=== PATIENT | female | born 1950 | race Caucasian/White ===

== ENCOUNTER 2021-04-14 16:50 | Inpatient (IN) ==
[2021-04-14] MEDS ORDERED: SODIUM CHLORIDE 0.9% 1,000 ML IV STA ×2 (17:51→19:05)
[2021-04-14 19:01] LABS: Basophils # 0.1 10*3/uL (0.0-0.2); Basophils % 0.2 % (0.0-0.8); Eosinophils % 0.1 % (0.00-10.9); Hematocrit 45.7 VOL% (35.7-47.0); Hemoglobin 14.3 GM/DL (12.0-16.0); Immature Granulocytes % 1.1 %; Immature Granulocytes Absolute 0.26 #; Lymphocytes # 1.8 10*3/uL (1.4-4.0); Lymphocytes % 7.5 % (21.3-54.2); Mean Corpuscular HGB Conc 31.3 GM/DL (32-36); Mean Corpuscular Volume 93.1 FL (87-102); Mean Platelet Volume 9.3 FL (9.6-12.0); Monocytes % 3.2 % (1.7-12.7); NRBC # 0.02 10*3/uL; Neutrophils % 87.9 % (38.7-73.9); Platelet Count 509 T/CUMM (130-400); Red Blood Count 4.91 MC/CUMM (3.8-5.5); Red Cell Distribution Width 14.8 % (9.3-17.3); White Blood Count 24.7 T/CUMM (4-12)
[2021-04-14] MEDS ORDERED: PIPERACILLIN/TAZOBACTAM 3,375 MG in SODIUM CHLORIDE 0.9% 100 ML IV STA (19:05)
[2021-04-14] MEDS ORDERED: PIPERACILLIN/TAZOBACTAM 3,375 MG VIAL IV ONE (19:07)
[2021-04-14] MEDS ORDERED: SODIUM CHLORIDE 0.9% 100 ML IV ONE (19:08)
[2021-04-14 19:16] LABS: Alanine Aminotransferase 123 U/L (13-56); Alkaline Phosphatase 181 U/L (45-117); Aspartate Amino Transferase 216 U/L (0-37); Blood Urea Nitrogen 39 MG/DL (7-18); Calcium 8.7 MG/DL (8.5-10.1); Carbon Dioxide 24 MMOL/L (21-32); Estimated Glom Filtration Rate 36 ML/MIN; Glucose 87 MG/DL (74-106); Osmolality,Calculated 269.7 MOS/KG (273-304); Potassium 4.8 MMOL/L (3.5-5.1); Sodium 131 MMOL/L (136-145); Total Protein 5.4 G/DL (6.4-8.2)
[2021-04-14 19:26] LABS: Thyroid Stimulating Hormone 9.99 uIU/ml (0.358-3.74)
[2021-04-14] MEDS ORDERED: NOREPINEPHRINE 4 MG/4 ML VIAL IV ONE (19:33)
[2021-04-14] MEDS: NOREPINEPHRINE 8 MG in SODIUM CHLORIDE 0.9% 242 ML IV PRN (19:40)
[2021-04-14 20:04] LABS: ABG Oxygen Saturation 91.4 % (95-100); ABG PCO2 54.2 MM HG (35-48); ABG PH 7.255 (7.35-7.45); ABG TCO2 21.6 MMOL/L (23-27); Allen Test Positive
[2021-04-14 20:26] LABS: Lymphocytes 5 % (20-55); Segmented Neutrophils 92 % (50-85); Total Cells Counted 100
[2021-04-14 20:33] LABS: INR 1.1; PT Patient Result 12.6 SECS (10.5-12.0); Partial Thromboplastin Time 29.9 SECS (23.9-33.8)
[2021-04-14] MEDS ORDERED: DIGOXIN 0.5 MG/2 ML AMP ONE ×2 (20:54→20:56)
[2021-04-14] MEDS ORDERED: HYDROmorphone 2 MG/1 ML VIAL IV STA (21:43)
[2021-04-14] MEDS ORDERED: HYDROmorphone 2 MG/1 ML VIAL ONE (21:44)
[2021-04-14] MEDS ORDERED: HYDROmorphone 2 MG/1 ML VIAL IV PRN (21:47)
[2021-04-14] MEDS ORDERED: LORazepam 2 MG/1 ML VIAL IV PRN (21:56)
[2021-04-14] MEDS ORDERED: PROMETHAZINE INJ 12.5 MG in SODIUM CHLORIDE 0.9% 50 ML IV PRN (21:56)
[2021-04-14] MEDS ORDERED: ALBUTEROL 2.5 MG/3 ML NEB RESP TX PRN (21:58)
[2021-04-14] MEDS ORDERED: PANTOPRAZOLE 40 MG VIAL IV SCH (22:00)
[2021-04-14] MEDS ORDERED: ENOXAPARIN 30 MG/0.3 ML SYRINGE SUBCUT SCH (22:00)
[2021-04-14] MEDS ORDERED: LACTATED RINGERS 1,000 ML IV SCH (22:00)
[2021-04-14] MEDS ORDERED: DIGOXIN 0.5 MG/2 ML AMP IV ONE ×2 (22:04→22:45)
[2021-04-14] MEDS: HYDROCORTISONE 100 MG VIAL IV SCH (23:25)
[2021-04-15] MEDS: NOREPINEPHRINE 8 MG in SODIUM CHLORIDE 0.9% 242 ML IV PRN ×2 (00:15→03:25)
[2021-04-15 01:22] LABS: Mean Corpuscular HGB Conc 30.5 GM/DL (32-36)
[2021-04-15 01:42] LABS: Basophils # 0.1 10*3/uL (0.0-0.2); Basophils % 0.4 % (0.0-0.8); Eosinophils # 0.1 10*3/uL (0.0-0.87); Eosinophils % 0.2 % (0.00-10.9); Hematocrit 49.8 VOL% (35.7-47.0); Immature Granulocytes % 1.4 %; Immature Granulocytes Absolute 0.45 #; Lymphocytes # 1.8 10*3/uL (1.4-4.0); Lymphocytes % 5.6 % (21.3-54.2); Mean Corpuscular Volume 94.9 FL (87-102); Mean Platelet Volume 9.5 FL (9.6-12.0); NRBC # 0.02 10*3/uL; Neutrophils % 88.4 % (38.7-73.9); Platelet Count 498 T/CUMM (130-400); Red Blood Count 5.25 MC/CUMM (3.8-5.5); Red Cell Distribution Width 14.6 % (9.3-17.3); White Blood Count 32.3 T/CUMM (4-12)
[2021-04-15 01:43] LABS: Hemoglobin 15.2 GM/DL (12.0-16.0)
[2021-04-15 02:12] LABS: Band Neutrophils 2 % (0-10); Lymphocytes 8 % (20-55); Platelet Estimate Increased; Segmented Neutrophils 85 % (50-85); Total Cells Counted 100
[2021-04-15 02:22] VITALS: BP 108/44
[2021-04-15 03:03] LABS: Calcium 8.4 MG/DL (8.5-10.1); Osmolality,Calculated 272.7 MOS/KG (273-304); Potassium 5.9 MMOL/L (3.5-5.1); Total Protein 5.8 G/DL (6.4-8.2)
[2021-04-15] MEDS: HYDROCORTISONE 100 MG VIAL IV SCH (04:03)
== END 2021-04-15 06:08 | disposition expired | DRG 948 ==
LOC: EDBD → EDUNIT# → N.ED 16:50 → N.EDINP 20:38 → N.CC 22:08
PROVIDERS: ADMIT Internal Medicine; ATTEND Internal Medicine